=== PATIENT | female | born 1955 | race Two or more races ===

== ENCOUNTER 2021-10-25 13:09 | Emergency (ER) | payer OTHER ==
[~2021-10-25] VITALS: Ht 157.5 cm; Wt 63.5 kg
[2021-10-25] MEDS ORDERED: KETOROLAC TROMETH 30 MG/ML 1ML VIAL IV ONE ×2 (15:45→21:45)
[2021-10-25 16:39] LABS: Basophils # (auto) 0 10 ^3/uL (0-0.2); Eosinophils # (auto) 0 10 ^3/uL (0-0.8); Mean Corpuscular Hemoglobin 26.8 pg (28.0-32.0); Mean Corpuscular Hgb Conc. 32.1 g/dL (32.0-36.0); Monocytes % (auto) 6.1 % (0.0-12.0); Red Cell Distribution Width 13.8 % (11.8-14.3)
[2021-10-25 16:41] LABS: Basophils % (auto) 0.2 % (0.0-2.0); Hematocrit 34.6 % (36.0-46.0); Hemoglobin 11.1 g/dL (12.2-16.2); Lymphocytes # (auto) 0.9 10 ^3/uL (0.4-5.4); Lymphocytes % (auto) 5.7 % (10.0-50.0); Mean Corpuscular Volume 83.5 fL (80.0-100.0); Neutrophils # (auto) 14.8 10 ^3/uL (1.6-8.6); Red Blood Cells 4.15 10^6/uL (4.0-5.20); White Blood Cell 16.8 10^3/uL (4.4-10.8)
[2021-10-25] MEDS ORDERED: ONDANSETRON HCL 4 MG/2 ML VIAL ONE (17:37)
[2021-10-25] MEDS ORDERED: ONDANSETRON HCL 4 MG/2 ML VIAL IV ONE (19:45)
[2021-10-25] MEDS ORDERED: METOCLOPRAMIDE HCL 5MG/ml INJ 2ml VIAL IV ONE (21:45)
[2021-10-26 01:21] LABS: Albumin 3.4 g/dL (3.4-5.0); BUN/Creatinine Ratio 34.8; Calcium 8.2 mg/dL (8.5-10.1); Potassium 4.9 mmol/L (3.5-5.1)
[2021-10-26 01:24] LABS: Bilirubin, Total 0.3 mg/dL (0.2-1.0); Total Protein 5.7 g/dL (6.4-8.2)
[2021-10-26] MEDS ORDERED: IOHEXOL 350 MG/ML 100ML IJ ONE (01:48)
[2021-10-26] MEDS ORDERED: METOCLOPRAMIDE HCL 5MG/ml INJ 2ml VIAL IV ONE (05:15)
[2021-10-26] MEDS ORDERED: HYDROmorphone HCL 2 MG/ML VL IV ONE (05:15)
[2021-10-26 05:50] VITALS: BP 134/72
== END 2021-10-26 06:05 | disposition home or self-care (01) ==
LOC: ER 13:09 → EDBD 13:09 → ER 10-26 06:05
DX: R42 Dizziness and giddiness (principal); R07.89 Other chest pain; I10 Essential (primary) hypertension; E78.5 Hyperlipidemia, unspecified; Z88.2 Allergy status to sulfonamides; V43.52XA Car driver injured in collision with other type car in traffic accident, initial encounter; Y93.89 Activity, other specified; Y92.89 Other specified places as the place of occurrence of the external cause; Y99.8 Other external cause status
CPT/HCPCS: 36415; 70450; 71250; 71275; 80053; 82962; 85025; 86850; 86900; 86901; 93005; 96374; 96375; 96376; 99285; J1170; J1885; J2405; J2765; L0120; Q9967